=== PATIENT | female | born 1940 | race American Indian/Alaskan Native ===

== ENCOUNTER 2017-10-17 02:19 | Inpatient (IN) | payer MEDICARE, OTHER ==
[~2017-10-17] VITALS: Ht 162.6 cm; Wt 100.0 kg
[~2017-10-17 02:19] MED LIST: ASPI-611 PO; ATOR10TA70 PO; CALC500T11 PO; CARV-50 PO; CLON0.1T20 PO; FOLI1TAB16 PO; FURO-149 PO; GLIM1TAB46 PO; HYDR-4069 PO; LEVO100T PO; LISI-600 PO; TRUSOPT OP; VIT1TABL48 PO
[2017-10-17] MEDS ORDERED: vancomycin/NS 1 GM ADD-VANTAGE 250 ML IV ONE (04:50)
[2017-10-17] MEDS ORDERED: ondansetron/PF 4mg/2ml inj IV PRN (04:50)
[2017-10-17] MEDS ORDERED: CETI10TA15 PO (04:56)
[2017-10-17] MEDS ORDERED: VALS80TA32 PO (04:56)
[2017-10-17 06:57] LABS: BASOPHILS % (AUTO) 0.3 % (0-1); EOSINOPHILS # (AUTO) 0.6 X10'3 (0-0.9); EOSINOPHILS % (AUTO) 4.9 % (0-6); HEMATOCRIT 28.4 % (35.0-45.0); HEMOGLOBIN 9.7 g/dl (12.0-16.0); LYMPHOCYTES # (AUTO) 0.7 X10'3 (1.1-4.8); LYMPHOCYTES % (AUTO) 5.8 % (21-51); MEAN CORPUSCULAR HEMOGLOBIN 33.3 PG (27.0-31.0); MEAN CORPUSCULAR HGB CONC 34.2 % (33.0-36.5); MEAN CORPUSCULAR VOLUME 97.4 FL (78-98); MEAN PLATELET VOLUME 8.6 FL (7.4-10.4); MONOCYTES # (AUTO) 0.6 X10'3 (0-0.9); MONOCYTES % (AUTO) 4.8 % (2-12); NEUTROPHILS # (AUTO) 10.6 X10'3 (1.8-7.7); NEUTROPHILS % (AUTO) 84.2 % (42-75); PLATELET COUNT 293 X10'3 (140-440); RED BLOOD COUNT 2.92 X10'6 (4.20-5.60); RED CELL DISTRIBUTION WIDTH 17.3 % (11.5-14.5); WHITE BLOOD COUNT 12.6 X10'3 (4.5-11.0)
[2017-10-17 07:07] LABS: INR 1.1 INR; PARTIAL THROMBOPLASTIN TIME 31 SECONDS (22-32); PROTHROMBIN TIME 11.4 SECONDS (9.0-12.0)
[2017-10-17 07:19] LABS: ALANINE AMINOTRANSFERASE 46 U/L (12-78); ALBUMIN 1.8 G/DL (3.4-5.0); ALBUMIN/GLOBULIN RATIO 0.4 (1.1-1.5); ALKALINE PHOSPHATASE 76 IU/L (46-116); ANION GAP 17 (8-16); ASPARTATE AMINO TRANSFERASE 46 U/L (10-37); BILIRUBIN,TOTAL 0.8 MG/DL (0.1-1.0); BLOOD UREA NITROGEN 150 MG/DL (7-18); BUN/CREATININE RATIO 9.9 (6.6-38.0); CALCIUM 7.2 MG/DL (8.5-10.1); CHLORIDE 93 MMOL/L (99-107); GLUCOSE 104 MG/DL (70-104); MAGNESIUM 1.9 MG/DL (1.5-2.4); PHOSPHORUS 6.1 MG/DL (2.3-4.5); POTASSIUM 4.8 MMOL/L (3.5-5.1); SODIUM 132 MMOL/L (135-145); TOTAL CARBON DIOXIDE 22.2 MMOL/L (24-32); TOTAL PROTEIN 6.6 G/DL (6.4-8.2); eGFR 2 ML/MIN
[2017-10-17] MEDS ORDERED: epoetin 20,000 units/ml inj IV ONE ×2 (08:30→08:35)
[2017-10-17] MEDS ORDERED: heparin 1,000unit/ml 10ml vial 10 ML IV ONE (08:30)
[2017-10-17] MEDS ORDERED: normal saline 1000ml 250 ML IV PRN ×2 (08:30→08:32)
[2017-10-17] MEDS ORDERED: heparin 1,000 units/ml 10ml inj IV ONE (08:30)
[2017-10-17] MEDS ORDERED: LIDOcaine 1% (10mg/ml) 2ml vial SQ ONE (08:35)
[2017-10-17] MEDS: levoTHYROXINE 75mcg tablet PO SCH (08:41)
[2017-10-17] MEDS: folic acid 1mg tablet PO SCH (08:43)
[2017-10-17] MEDS: aspirin 81mg tablet.DR PO SCH (08:43)
[2017-10-17] MEDS: cetirizine 10mg tablet PO SCH (08:45)
[2017-10-17] MEDS: heparin, porcine 5000 units/ml vial SQ SCH ×2 (08:46→20:16)
[2017-10-17] MEDS: atorvastatin 10mg tablet PO SCH (08:47)
[2017-10-17] MEDS: folic acid/vitamin B complex w/vitamin C 0.8mg tablet PO SCH (08:47)
[2017-10-17] MEDS: dorzolamide 2% ophthalmic drops 10ml EACHEYE SCH ×2 (09:01→20:16)
[2017-10-17 10:00] VITALS: BP 117/55
[2017-10-17] MEDS ORDERED: dextrose 50%-water 50ml dispensing syringe IV ONE ×2 (14:16→14:25)
[2017-10-17] MEDS: Dextrose 10%-water IV solution 1,000 ML IV SCH (14:25)
[2017-10-17 15:13] LABS: BASOPHILS % (AUTO) 0 % (0-1); EOSINOPHILS # (AUTO) 0.2 X10'3 (0-0.9); EOSINOPHILS % (AUTO) 1.2 % (0-6); HEMATOCRIT 29.4 % (35.0-45.0); HEMOGLOBIN 10.1 g/dl (12.0-16.0); LYMPHOCYTES # (AUTO) 0.3 X10'3 (1.1-4.8); LYMPHOCYTES % (AUTO) 2.5 % (21-51); MEAN CORPUSCULAR HEMOGLOBIN 33.1 PG (27.0-31.0); MEAN CORPUSCULAR HGB CONC 34.3 % (33.0-36.5); MEAN CORPUSCULAR VOLUME 96.4 FL (78-98); MEAN PLATELET VOLUME 8.3 FL (7.4-10.4); MONOCYTES # (AUTO) 0.5 X10'3 (0-0.9); MONOCYTES % (AUTO) 3.5 % (2-12); NEUTROPHILS # (AUTO) 12.6 X10'3 (1.8-7.7); NEUTROPHILS % (AUTO) 92.8 % (42-75); PLATELET COUNT 321 X10'3 (140-440); RED BLOOD COUNT 3.05 X10'6 (4.20-5.60); RED CELL DISTRIBUTION WIDTH 17.6 % (11.5-14.5); WHITE BLOOD COUNT 13.6 X10'3 (4.5-11.0)
[2017-10-17] MEDS: levoFLOXACIN-Levaquin 250mg/D5 50 ML IV SCH (15:19)
[2017-10-17 15:34] LABS: ALANINE AMINOTRANSFERASE 45 U/L (12-78); ALBUMIN 1.9 G/DL (3.4-5.0); ALBUMIN/GLOBULIN RATIO 0.4 (1.1-1.5); ALKALINE PHOSPHATASE 92 IU/L (46-116); ANION GAP 14 (8-16); ASPARTATE AMINO TRANSFERASE 45 U/L (10-37); BLOOD UREA NITROGEN 36 MG/DL (7-18); BUN/CREATININE RATIO 7.1 (6.6-38.0); CALCIUM 8.1 MG/DL (8.5-10.1); CHLORIDE 96 MMOL/L (99-107); CREATININE 5.06 MG/DL (0.40-0.90); GLUCOSE 175 MG/DL (70-104); POTASSIUM 3.5 MMOL/L (3.5-5.1); SODIUM 136 MMOL/L (135-145); TOTAL CARBON DIOXIDE 26.5 MMOL/L (24-32); eGFR 8 ML/MIN
[2017-10-17 18:00] VITALS: BP 159/49
[2017-10-17] MEDS: acetaminophen 325mg tablet PO PRN (19:17)
[2017-10-17] MEDS: losartan 50mg tablet PO SCH (20:15)
[2017-10-17] MEDS: lactobacillus rhamnosus 10,000 MMU CELLS/CAPSULE PO SCH (20:15)
[2017-10-17] MEDS: hydrALAZINE 25 MG tablet PO SCH (20:16)
[2017-10-17] MEDS: furosemide 40mg tablet PO SCH (20:16)
[2017-10-17 22:00] VITALS: BP 146/44
[2017-10-17 22:49] LABS: HEMOGLOBIN A1C 6.8 % (4.5-6.2)
[2017-10-18] MEDS: Dextrose 10%-water IV solution 1,000 ML IV SCH ×2 (00:25→10:25)
[2017-10-18 02:52] VITALS: BP 125/40
[2017-10-18] MEDS: VANCOMYCIN LEVEL IV SCH (03:00)
[2017-10-18 05:00] VITALS: BP 131/45
[2017-10-18 06:00] VITALS: BP 131/45
[2017-10-18 06:47] LABS: BASOPHILS % (AUTO) 0.5 % (0-1); EOSINOPHILS # (AUTO) 0.3 X10'3 (0-0.9); EOSINOPHILS % (AUTO) 2.9 % (0-6); HEMATOCRIT 26.8 % (35.0-45.0); LYMPHOCYTES # (AUTO) 0.6 X10'3 (1.1-4.8); LYMPHOCYTES % (AUTO) 6.5 % (21-51); MEAN CORPUSCULAR HEMOGLOBIN 33.1 PG (27.0-31.0); MEAN CORPUSCULAR HGB CONC 33.5 % (33.0-36.5); MEAN CORPUSCULAR VOLUME 98.8 FL (78-98); MEAN PLATELET VOLUME 8.4 FL (7.4-10.4); MONOCYTES # (AUTO) 0.7 X10'3 (0-0.9); MONOCYTES % (AUTO) 6.7 % (2-12); NEUTROPHILS # (AUTO) 8.3 X10'3 (1.8-7.7); NEUTROPHILS % (AUTO) 83.4 % (42-75); PLATELET COUNT 279 X10'3 (140-440); RED BLOOD COUNT 2.72 X10'6 (4.20-5.60); RED CELL DISTRIBUTION WIDTH 17.9 % (11.5-14.5); WHITE BLOOD COUNT 9.9 X10'3 (4.5-11.0)
[2017-10-18 07:09] LABS: ALANINE AMINOTRANSFERASE 38 U/L (12-78); ALBUMIN 1.5 G/DL (3.4-5.0); ALBUMIN/GLOBULIN RATIO 0.3 (1.1-1.5); ALKALINE PHOSPHATASE 75 IU/L (46-116); ANION GAP 6 (8-16); ASPARTATE AMINO TRANSFERASE 43 U/L (10-37); BILIRUBIN,TOTAL 0.8 MG/DL (0.1-1.0); BLOOD UREA NITROGEN 41 MG/DL (7-18); BUN/CREATININE RATIO 6.1 (6.6-38.0); CALCIUM 7.6 MG/DL (8.5-10.1); CHLORIDE 97 MMOL/L (99-107); CREATININE 6.76 MG/DL (0.40-0.90); GLUCOSE 171 MG/DL (70-104); MAGNESIUM 1.7 MG/DL (1.5-2.4); PHOSPHORUS 3.4 MG/DL (2.3-4.5); POTASSIUM 3.3 MMOL/L (3.5-5.1); SODIUM 133 MMOL/L (135-145); TOTAL CARBON DIOXIDE 29.7 MMOL/L (24-32); TOTAL PROTEIN 6.1 G/DL (6.4-8.2); VANCOMYCIN,RANDOM 6.3 UG/ML; eGFR 6 ML/MIN
[2017-10-18] MEDS: dorzolamide 2% ophthalmic drops 10ml EACHEYE SCH ×2 (08:00→20:26)
[2017-10-18] MEDS ORDERED: normal saline 1000ml 250 ML IV PRN (09:38)
[2017-10-18] MEDS ORDERED: heparin 1,000unit/ml 10ml vial 10 ML IV ONE (09:38)
[2017-10-18] MEDS ORDERED: epoetin 20,000 units/ml inj IV ONE (09:40)
[2017-10-18] MEDS: aspirin 81mg tablet.DR PO SCH (09:45)
[2017-10-18] MEDS: lactobacillus rhamnosus 10,000 MMU CELLS/CAPSULE PO SCH ×2 (09:46→20:27)
[2017-10-18] MEDS: hydrALAZINE 25 MG tablet PO SCH ×3 (09:46→20:27)
[2017-10-18] MEDS: folic acid/vitamin B complex w/vitamin C 0.8mg tablet PO SCH (09:46)
[2017-10-18] MEDS: furosemide 40mg tablet PO SCH ×3 (09:47→20:27)
[2017-10-18] MEDS: atorvastatin 10mg tablet PO SCH (09:47)
[2017-10-18] MEDS: folic acid 1mg tablet PO SCH (09:47)
[2017-10-18] MEDS: levoTHYROXINE 75mcg tablet PO SCH (09:47)
[2017-10-18] MEDS: cetirizine 10mg tablet PO SCH (09:47)
[2017-10-18] MEDS: heparin, porcine 5000 units/ml vial SQ SCH ×2 (09:55→20:27)
[2017-10-18 10:00] VITALS: BP 129/70
[2017-10-18] MEDS ORDERED: iohexol 300mg/ml 100ml inj. ONE (10:56)
[2017-10-18] MEDS: acetaminophen 325mg tablet PO PRN (19:41)
[2017-10-18] MEDS: losartan 50mg tablet PO SCH (20:27)
[2017-10-18 22:54] VITALS: BP 95/38
[2017-10-19] VITALS (9 sets, daily range): BP systolic 89–125; BP diastolic 31–62
[2017-10-19] MEDS: VANCOMYCIN LEVEL IV SCH (03:02)
[2017-10-19 07:16] LABS: BASOPHILS % (AUTO) 0.5 % (0-1); EOSINOPHILS # (AUTO) 0.5 X10'3 (0-0.9); EOSINOPHILS % (AUTO) 4.7 % (0-6); HEMOGLOBIN 8.9 g/dl (12.0-16.0); LYMPHOCYTES # (AUTO) 0.9 X10'3 (1.1-4.8); LYMPHOCYTES % (AUTO) 8.9 % (21-51); MEAN CORPUSCULAR HEMOGLOBIN 32.9 PG (27.0-31.0); MEAN CORPUSCULAR HGB CONC 33.1 % (33.0-36.5); MEAN CORPUSCULAR VOLUME 99.4 FL (78-98); MEAN PLATELET VOLUME 8.4 FL (7.4-10.4); MONOCYTES # (AUTO) 0.7 X10'3 (0-0.9); MONOCYTES % (AUTO) 6.7 % (2-12); NEUTROPHILS # (AUTO) 7.7 X10'3 (1.8-7.7); NEUTROPHILS % (AUTO) 79.2 % (42-75); PLATELET COUNT 343 X10'3 (140-440); RED BLOOD COUNT 2.71 X10'6 (4.20-5.60); RED CELL DISTRIBUTION WIDTH 17.6 % (11.5-14.5); WHITE BLOOD COUNT 9.7 X10'3 (4.5-11.0)
[2017-10-19 08:42] LABS: ALANINE AMINOTRANSFERASE 39 U/L (12-78); ALBUMIN 1.6 G/DL (3.4-5.0); ALBUMIN/GLOBULIN RATIO 0.3 (1.1-1.5); ALKALINE PHOSPHATASE 90 IU/L (46-116); ANION GAP 7 (8-16); ASPARTATE AMINO TRANSFERASE 44 U/L (10-37); BILIRUBIN,TOTAL 0.7 MG/DL (0.1-1.0); BLOOD UREA NITROGEN 24 MG/DL (7-18); BUN/CREATININE RATIO 4.9 (6.6-38.0); CALCIUM 7.9 MG/DL (8.5-10.1); CHLORIDE 99 MMOL/L (99-107); CREATININE 4.87 MG/DL (0.40-0.90); GLUCOSE 145 MG/DL (70-104); MAGNESIUM 1.9 MG/DL (1.5-2.4); PHOSPHORUS 3.5 MG/DL (2.3-4.5); POTASSIUM 3.3 MMOL/L (3.5-5.1); SODIUM 136 MMOL/L (135-145); eGFR 9 ML/MIN
[2017-10-19] MEDS: levoFLOXACIN-Levaquin 250mg/D5 50 ML IV SCH (08:47)
[2017-10-19] MEDS: aspirin 81mg tablet.DR PO SCH (08:48)
[2017-10-19] MEDS: folic acid 1mg tablet PO SCH (08:48)
[2017-10-19] MEDS: heparin, porcine 5000 units/ml vial SQ SCH ×2 (08:48→19:11)
[2017-10-19] MEDS: cetirizine 10mg tablet PO SCH (08:48)
[2017-10-19] MEDS: lactobacillus rhamnosus 10,000 MMU CELLS/CAPSULE PO SCH ×2 (08:49→19:11)
[2017-10-19] MEDS: atorvastatin 10mg tablet PO SCH (08:49)
[2017-10-19] MEDS: hydrALAZINE 25 MG tablet PO SCH ×3 (08:49→20:37)
[2017-10-19] MEDS: folic acid/vitamin B complex w/vitamin C 0.8mg tablet PO SCH (08:49)
[2017-10-19] MEDS: dorzolamide 2% ophthalmic drops 10ml EACHEYE SCH ×2 (08:53→19:11)
[2017-10-19] MEDS: furosemide 40mg tablet PO SCH ×3 (08:53→20:38)
[2017-10-19] MEDS: levoTHYROXINE 75mcg tablet PO SCH (08:53)
[2017-10-19 09:42] LABS: VANCOMYCIN,RANDOM 19.7 UG/ML
[2017-10-19] MEDS: acetaminophen 325mg tablet PO PRN (14:30)
[2017-10-19] MEDS: losartan 50mg tablet PO SCH (20:38)
[2017-10-20] MEDS: VANCOMYCIN LEVEL IV SCH (03:30)
[2017-10-20 05:09] LABS: BASOPHILS # (AUTO) 0.1 X10'3 (0-0.2); BASOPHILS % (AUTO) 0.6 % (0-1); EOSINOPHILS # (AUTO) 0.4 X10'3 (0-0.9); EOSINOPHILS % (AUTO) 4.7 % (0-6); HEMATOCRIT 26.9 % (35.0-45.0); HEMOGLOBIN 9.1 g/dl (12.0-16.0); LYMPHOCYTES # (AUTO) 1.1 X10'3 (1.1-4.8); LYMPHOCYTES % (AUTO) 12.7 % (21-51); MEAN CORPUSCULAR HEMOGLOBIN 33.8 PG (27.0-31.0); MEAN CORPUSCULAR HGB CONC 33.9 % (33.0-36.5); MEAN CORPUSCULAR VOLUME 99.8 FL (78-98); MEAN PLATELET VOLUME 8.1 FL (7.4-10.4); MONOCYTES # (AUTO) 0.5 X10'3 (0-0.9); MONOCYTES % (AUTO) 6.2 % (2-12); NEUTROPHILS # (AUTO) 6.7 X10'3 (1.8-7.7); NEUTROPHILS % (AUTO) 75.8 % (42-75); PLATELET COUNT 396 X10'3 (140-440); RED BLOOD COUNT 2.69 X10'6 (4.20-5.60); RED CELL DISTRIBUTION WIDTH 17.8 % (11.5-14.5); WHITE BLOOD COUNT 8.9 X10'3 (4.5-11.0)
[2017-10-20 06:14] LABS: ALANINE AMINOTRANSFERASE 36 U/L (12-78); ALBUMIN 1.7 G/DL (3.4-5.0); ALBUMIN/GLOBULIN RATIO 0.4 (1.1-1.5); ALKALINE PHOSPHATASE 87 IU/L (46-116); ANION GAP 10 (8-16); ASPARTATE AMINO TRANSFERASE 35 U/L (10-37); BILIRUBIN,TOTAL 0.6 MG/DL (0.1-1.0); BLOOD UREA NITROGEN 35 MG/DL (7-18); BUN/CREATININE RATIO 5.5 (6.6-38.0); CALCIUM 7.9 MG/DL (8.5-10.1); CHLORIDE 98 MMOL/L (99-107); CREATININE 6.38 MG/DL (0.40-0.90); GLUCOSE 130 MG/DL (70-104); MAGNESIUM 1.9 MG/DL (1.5-2.4); PHOSPHORUS 4.3 MG/DL (2.3-4.5); POTASSIUM 3.4 MMOL/L (3.5-5.1); SODIUM 136 MMOL/L (135-145); TOTAL PROTEIN 6.4 G/DL (6.4-8.2); VANCOMYCIN,RANDOM 18.7 UG/ML; eGFR 6 ML/MIN
[2017-10-20 07:14] VITALS: BP 143/59
[2017-10-20] MEDS: levoTHYROXINE 75mcg tablet PO SCH ×2 (08:00→14:04)
[2017-10-20] MEDS: furosemide 40mg tablet PO SCH ×4 (08:00→20:23)
[2017-10-20] MEDS: cetirizine 10mg tablet PO SCH ×2 (08:00→08:01)
[2017-10-20] MEDS: lactobacillus rhamnosus 10,000 MMU CELLS/CAPSULE PO SCH ×3 (08:00→20:00)
[2017-10-20] MEDS: dorzolamide 2% ophthalmic drops 10ml EACHEYE SCH ×2 (08:00→20:27)
[2017-10-20] MEDS: folic acid 1mg tablet PO SCH ×2 (08:00→14:03)
[2017-10-20] MEDS: hydrALAZINE 25 MG tablet PO SCH ×4 (08:00→20:23)
[2017-10-20] MEDS: aspirin 81mg tablet.DR PO SCH ×2 (08:01→14:03)
[2017-10-20] MEDS: atorvastatin 10mg tablet PO SCH ×2 (08:01→14:04)
[2017-10-20] MEDS: folic acid/vitamin B complex w/vitamin C 0.8mg tablet PO SCH ×2 (08:01→14:03)
[2017-10-20] MEDS: heparin, porcine 5000 units/ml vial SQ SCH ×2 (08:01→20:00)
[2017-10-20 18:00] VITALS: BP 110/43
[2017-10-20] MEDS: losartan 50mg tablet PO SCH (20:23)
[2017-10-20 22:00] VITALS: BP 156/98
[2017-10-20 22:36] LABS: ABG BASE EXCESS 0.8 mmol/L (-2.0-3.0); ABG HCO3 24.8 mmol/L (22.0-26.0); ABG OXYGEN SATURATION 94.9 % (95-98); ABG PH (T) 7.442 (7.350-7.450); ABG PO2 (T) 77.5 mmHg (83-108); FCOHb 0.7 % (0.5-1.5); FMetHb 0.3 % (0.3-1.12); PATIENT TEMPERATURE 36.7; RESPIRATORY RATE (OBSERVED) 16 b/min; TOTAL HEMOGLOBIN 11.5 G/dl (12.0-16.0)
[2017-10-21 06:37] LABS: BASOPHILS % (AUTO) 0.3 % (0-1); EOSINOPHILS # (AUTO) 0.5 X10'3 (0-0.9); HEMATOCRIT 28.7 % (35.0-45.0); HEMOGLOBIN 9.4 g/dl (12.0-16.0); LYMPHOCYTES % (AUTO) 9.7 % (21-51); MEAN CORPUSCULAR HEMOGLOBIN 32.9 PG (27.0-31.0); MEAN CORPUSCULAR HGB CONC 32.8 % (33.0-36.5); MEAN CORPUSCULAR VOLUME 100.4 FL (78-98); MEAN PLATELET VOLUME 7.8 FL (7.4-10.4); MONOCYTES # (AUTO) 0.5 X10'3 (0-0.9); MONOCYTES % (AUTO) 4.9 % (2-12); NEUTROPHILS # (AUTO) 8.4 X10'3 (1.8-7.7); NEUTROPHILS % (AUTO) 80.1 % (42-75); PLATELET COUNT 425 X10'3 (140-440); RED BLOOD COUNT 2.86 X10'6 (4.20-5.60); RED CELL DISTRIBUTION WIDTH 16.9 % (11.5-14.5); WHITE BLOOD COUNT 10.4 X10'3 (4.5-11.0)
[2017-10-21 06:57] LABS: ALANINE AMINOTRANSFERASE 33 U/L (12-78); ALBUMIN 1.9 G/DL (3.4-5.0); ALBUMIN/GLOBULIN RATIO 0.4 (1.1-1.5); ALKALINE PHOSPHATASE 78 IU/L (46-116); ANION GAP 10 (8-16); ASPARTATE AMINO TRANSFERASE 32 U/L (10-37); BILIRUBIN,TOTAL 0.6 MG/DL (0.1-1.0); BLOOD UREA NITROGEN 45 MG/DL (7-18); BUN/CREATININE RATIO 5.7 (6.6-38.0); CALCIUM 8.1 MG/DL (8.5-10.1); CHLORIDE 99 MMOL/L (99-107); CREATININE 7.84 MG/DL (0.40-0.90); GLUCOSE 126 MG/DL (70-104); MAGNESIUM 1.9 MG/DL (1.5-2.4); PHOSPHORUS 4.8 MG/DL (2.3-4.5); POTASSIUM 3.7 MMOL/L (3.5-5.1); SODIUM 135 MMOL/L (135-145); TOTAL CARBON DIOXIDE 26.4 MMOL/L (24-32); TOTAL PROTEIN 6.6 G/DL (6.4-8.2); VANCOMYCIN,RANDOM 17.3 UG/ML; eGFR 5 ML/MIN
[2017-10-21] MEDS: VANCOMYCIN LEVEL IV SCH (07:11)
[2017-10-21 07:16] VITALS: BP 158/41
[2017-10-21] MEDS: folic acid/vitamin B complex w/vitamin C 0.8mg tablet PO SCH (07:46)
[2017-10-21] MEDS: atorvastatin 10mg tablet PO SCH (07:46)
[2017-10-21] MEDS: dorzolamide 2% ophthalmic drops 10ml EACHEYE SCH ×2 (07:46→20:50)
[2017-10-21] MEDS: aspirin 81mg tablet.DR PO SCH (07:46)
[2017-10-21] MEDS: folic acid 1mg tablet PO SCH (07:46)
[2017-10-21] MEDS: hydrALAZINE 25 MG tablet PO SCH ×3 (07:46→21:00)
[2017-10-21] MEDS: cetirizine 10mg tablet PO SCH (07:46)
[2017-10-21] MEDS: furosemide 40mg tablet PO SCH ×3 (07:46→21:00)
[2017-10-21] MEDS: lactobacillus rhamnosus 10,000 MMU CELLS/CAPSULE PO SCH ×2 (07:46→20:51)
[2017-10-21] MEDS: levoTHYROXINE 75mcg tablet PO SCH (07:46)
[2017-10-21] MEDS: heparin, porcine 5000 units/ml vial SQ SCH ×2 (07:46→20:51)
[2017-10-21] MEDS ORDERED: albumin (human) 25% 100ml IV 100 ML IV PRN (10:10)
[2017-10-21] MEDS ORDERED: epoetin 20,000 units/ml inj IV ONE (10:10)
[2017-10-21] MEDS ORDERED: LIDOcaine 1% (10mg/ml) 2ml vial SQ ONE (10:10)
[2017-10-21] MEDS ORDERED: heparin 1,000unit/ml 10ml vial 10 ML IV ONE (10:10)
[2017-10-21] MEDS ORDERED: normal saline 1000ml 250 ML IV PRN (10:10)
[2017-10-21] MEDS ORDERED: levoFLOXACIN 500mg tablet PO SCH (11:00)
[2017-10-21 11:32] VITALS: BP 157/70
[2017-10-21 18:00] VITALS: BP 151/30
[2017-10-21 20:30] VITALS: BP 97/48
[2017-10-21] MEDS: losartan 50mg tablet PO SCH (21:00)
[2017-10-21 22:00] VITALS: BP 154/62
[2017-10-22] MEDS: acetaminophen 325mg tablet PO PRN (01:33)
[2017-10-22] MEDS: VANCOMYCIN LEVEL IV SCH (03:17)
[2017-10-22 06:28] VITALS: BP 131/53
[2017-10-22 06:44] LABS: BASOPHILS % (AUTO) 0.4 % (0-1); EOSINOPHILS # (AUTO) 0.3 X10'3 (0-0.9); EOSINOPHILS % (AUTO) 3.8 % (0-6); HEMATOCRIT 26.2 % (35.0-45.0); HEMOGLOBIN 8.9 g/dl (12.0-16.0); LYMPHOCYTES # (AUTO) 1.4 X10'3 (1.1-4.8); LYMPHOCYTES % (AUTO) 15.4 % (21-51); MEAN CORPUSCULAR HEMOGLOBIN 33.7 PG (27.0-31.0); MEAN CORPUSCULAR HGB CONC 33.9 % (33.0-36.5); MEAN CORPUSCULAR VOLUME 99.6 FL (78-98); MEAN PLATELET VOLUME 7.1 FL (7.4-10.4); MONOCYTES # (AUTO) 0.6 X10'3 (0-0.9); NEUTROPHILS # (AUTO) 6.8 X10'3 (1.8-7.7); NEUTROPHILS % (AUTO) 74.4 % (42-75); PLATELET COUNT 412 X10'3 (140-440); RED BLOOD COUNT 2.63 X10'6 (4.20-5.60); WHITE BLOOD COUNT 9.2 X10'3 (4.5-11.0)
[2017-10-22 07:10] LABS: ALANINE AMINOTRANSFERASE 31 U/L (12-78); ALBUMIN 1.9 G/DL (3.4-5.0); ALBUMIN/GLOBULIN RATIO 0.4 (1.1-1.5); ALKALINE PHOSPHATASE 88 IU/L (46-116); ANION GAP 6 (8-16); ASPARTATE AMINO TRANSFERASE 38 U/L (10-37); BILIRUBIN,TOTAL 0.5 MG/DL (0.1-1.0); BLOOD UREA NITROGEN 23 MG/DL (7-18); BUN/CREATININE RATIO 4.5 (6.6-38.0); CALCIUM 7.9 MG/DL (8.5-10.1); CHLORIDE 100 MMOL/L (99-107); CREATININE 5.09 MG/DL (0.40-0.90); GLUCOSE 111 MG/DL (70-104); MAGNESIUM 1.8 MG/DL (1.5-2.4); PHOSPHORUS 3.3 MG/DL (2.3-4.5); POTASSIUM 3.7 MMOL/L (3.5-5.1); SODIUM 137 MMOL/L (135-145); TOTAL CARBON DIOXIDE 30.6 MMOL/L (24-32); TOTAL PROTEIN 6.3 G/DL (6.4-8.2); VANCOMYCIN,RANDOM 13.3 UG/ML; eGFR 8 ML/MIN
[2017-10-22] MEDS: dorzolamide 2% ophthalmic drops 10ml EACHEYE SCH (07:20)
[2017-10-22] MEDS: lactobacillus rhamnosus 10,000 MMU CELLS/CAPSULE PO SCH (07:20)
[2017-10-22] MEDS: levoTHYROXINE 75mcg tablet PO SCH (07:20)
[2017-10-22] MEDS: cetirizine 10mg tablet PO SCH (07:20)
[2017-10-22] MEDS: furosemide 40mg tablet PO SCH ×2 (07:20→12:27)
[2017-10-22] MEDS: atorvastatin 10mg tablet PO SCH (07:20)
[2017-10-22] MEDS: folic acid/vitamin B complex w/vitamin C 0.8mg tablet PO SCH (07:20)
[2017-10-22] MEDS: aspirin 81mg tablet.DR PO SCH (07:20)
[2017-10-22] MEDS: heparin, porcine 5000 units/ml vial SQ SCH (07:21)
[2017-10-22] MEDS: hydrALAZINE 25 MG tablet PO SCH ×2 (07:21→12:27)
[2017-10-22] MEDS: folic acid 1mg tablet PO SCH (07:21)
[2017-10-22 11:37] VITALS: BP 110/54
[2017-10-23 11:34] LABS: HBSAG SCREEN Negative (Negative)
== END 2017-10-22 14:45 | disposition left against medical advice (07) | DRG 871 ==
LOC: ER 02:20 → ED HOLD 04:50 → EDBEDREQ 05:39 → ORTHO 4S 06:55
PROVIDERS: ATTEND Internal Medicine Critical Care Medicine
PROC: 5A1D70Z Performance of Urinary Filtration, Intermittent, Less than 6 Hours Per Day (ICD-10-PCS; 2017-10-17)
PROC: BW281ZZ Computerized Tomography (CT Scan) of Head using Low Osmolar Contrast (ICD-10-PCS; principal; 2017-10-18)
PROC: 5A1D70Z Performance of Urinary Filtration, Intermittent, Less than 6 Hours Per Day (ICD-10-PCS; 2017-10-18)
PROC: 5A1D70Z Performance of Urinary Filtration, Intermittent, Less than 6 Hours Per Day (ICD-10-PCS; 2017-10-21)
DX: A41.9 Sepsis, unspecified organism (principal); J18.1 Lobar pneumonia, unspecified organism; N18.6 End stage renal disease; G93.49 Other encephalopathy; I12.0 Hypertensive chronic kidney disease with stage 5 chronic kidney disease or end stage renal disease; E46 Unspecified protein-calorie malnutrition; Z53.21 Procedure and treatment not carried out due to patient leaving prior to being seen by health care provider; E11.22 Type 2 diabetes mellitus with diabetic chronic kidney disease; Z66 Do not resuscitate; E11.649 Type 2 diabetes mellitus with hypoglycemia without coma; F32.9 Major depressive disorder, single episode, unspecified; Z99.2 Dependence on renal dialysis; Z79.899 Other long term (current) drug therapy; Z79.82 Long term (current) use of aspirin; Z68.37 Body mass index [BMI] 37.0-37.9, adult
CPT/HCPCS: 36415; 36600; 70470; 71045; 80053; 80202; 82533; 82803; 82948; 83036; 83605; 83735; 84100; 84443; 85018; 85025; 85610; 85730; 87040; 87070; 87340; 94760; 97162; 97530; 99284; A6212; A6402; G0257; J0885; J1644; J1956; J2150; J3370; J3490; J7030; Q9967